=== PATIENT | female | born 1940 | race Caucasian/White ===

== ENCOUNTER → 2019-04-03 15:46 | Outpatient (CLI) | payer SELFPAY ==
--- NOTE | 2019-04-03 12:40 | LES_PTH ---
PATIENT: PHILL CHE LOC: [facility] U#:[id number] AGE/SX: 85/F ROOM: RE04/03/[address]: Dr. Karel Prado MD : 1940 BED: DIS: SPEC #: [id number] RECD: 04/03/19 15:22 STATUS: [facility] #: [id number] THIAGO: 04/03/19 12:[address]: Karel Prado DEPT: SURGICAL PATHOLOGY RECD BY: Alfredito Whatley ENTERED: 04/04/19 08:43 SP TYPE: Lesion OTHR DR: No Primary Care Phys WAS Tissues: Skin of external ear, NOS Procedures: Surgery Specimen Level IV HEADER OPERATION: Excision left ear canal mass PRE-OP DIAGNOSIS: Benign neoplasm of skin of left ear and external auricular canal TISSUE SUBMITTED: Left ear canal mass MICROSCOPIC DIAGNOSIS Mass of left ear canal, biopsy: Squamous epithelium with keratin debris. See comment. AM:sara 04/05/19 COMMENT The findings are suggestive of an epidermal inclusion cyst with focal rupture and associated reactive change. Clinical correlation is suggested. MICROSCOPIC DESCRIPTION Slides are reviewed. GROSS DESCRIPTION Received is one container labeled with the patient's name and not further designated. The specimen consists of two fragments of doss-brown soft tissue that in aggregate measure 0.5 x 0.3 x 0.1 cm. The specimen is totally submitted in one cassette. / SJ:sara 04/04/19 TC:5 CPT: [id number]
== END ==
PROVIDERS: Referring Provider Otolaryngology; Visit Provider Otolaryngology
DX: D23.22 Other benign neoplasm of skin of left ear and external auricular canal (principal)
CPT/HCPCS: 88305

== ENCOUNTER → 2020-07-04 13:52 | Outpatient (CLI) | payer SELFPAY ==
[2020-07-04 15:36] LABS: Absolute Lymphocyte Count 0.85 X10^3/uL (0.83-4.51); Absolute Neutrophil Count 2.2 X10^3/uL (2.0-7.7); Basophil# 0.01 X10^3/uL; Basophil% 0.3 % (0-1); Eosinophil# 0.04 X10^3/uL; Eosinophils% 1.2 % (0-5); Hematocrit 42.2 % (37-47); Hemoglobin 13.3 g/dL (12.0-15.0); Lymphocyte # 0.85 X10^3/ul (4.0); Lymphocyte % 25.1 % (19-41); Mean Corp Hgb Conc 31.5 g/dL (32-36); Mean Corpuscular Hgb 30.6 pg (27.0-32.0); Mean Corpuscular Volume 97.2 fL (81-99); Mean Platelet Vol. 10.8 fl (6.2-12.0); Monocyte# 0.27 X10^3/uL; NRBC Flagged by Analyzer 0 % (0-5); Neutrophil # 2.21 X10^3/uL (2.7-7.7); Neutrophil % 65.1 % (47-70); Platelet Count 145 K/mm3 (150-450); RBC Distribution Width CV 12.4 % (11.6-14.6); RBC Distribution Width SD 44.7 fl (35.1-43.9); Red Blood Count 4.34 M/mm3 (4.2-5.4); White Blood Count 3.4 K/mm3 (4.4-11.0)
[2020-07-04 15:50] LABS: CRP < 2.90 mg/L (0.0-3.0)
[2020-07-04 15:53] LABS: Erythrocyte Sedimentation Rate 4 mm/hr (0-30)
== END ==
PROVIDERS: PCP Family Medicine; Referring Provider Ophthalmology; Visit Provider Ophthalmology
DX: H53.10 Unspecified subjective visual disturbances (principal)
CPT/HCPCS: 36415; 85025; 85652; 86140

== ENCOUNTER → 2021-10-08 | Outpatient (CLI) | payer SELFPAY ==
--- NOTE | 2021-10-08 | IMM_PTH ---
PATIENT: PHILL CHE LOC: [facility] U#:[id number] AGE/SX: 81/F ROOM: RE10/08/[address]: Dr. Jitendra Montana MD : 1940 BED: DIS: 10/08/2021 SPEC #: [id number] RECD: 10/10/21 13:31 STATUS: VAN REQ #: [id number] THIAOG: 10/08/21 00:[address]: Jitendra Montana DEPT: IMMUNOHISTOCHEMISTRY RECD BY: Fatoumata Buenrostro ENTERED: 10/10/21 13:32 SP TYPE: IMMUNO OTHR DR: Dr. Jitendra Osorio MD Tissues: Skin of eyelid, NOS Procedures: MACRO (add) Pankeratin (initial) MELAN-A (add) S-100 (add) PHYSICIAN & INSTITUTION [facility] [id number] SPECIMEN INFORMATION: Tissue Source: Lesion right lower lid Clinical Info: Enlarging past few months Specimen Number: [id number] CPT code: 44213, 42684 x3 METHODOLOGY: Deparaffinized sections of prefer/formalin-fixed tissue or PAP/DQ stained slides are incubated with monoclonal/polyclonal antibodies/oligonucleotide probes. Localization is made via biotin free immunoperoxidase method. Appropriate controls are performed and reacted as expected. Results on target cell population are indicated in the following table: RESULTS: ANTIBODY / CLONE RESULT AE1-3 (AE1/AE3/PCK26) negative Macro (HAM-56) negative Melan A (A103) positive S-100 (4C4.9) positive These tests were developed and their performance characteristics determined by [facility]. They may not have been cleared or approved by the U.S. Food and Drug Administration. The FDA has determined that such clearance or approval is not necessary. The above immunohistochemical/dualISH markers are ordered and reviewed by the Pathologist. INTERPRETATION: Lesion of right lower eyelid, biopsy: Consistent with intradermal nevus. AM:sara 10/13/2021
--- NOTE | 2021-10-08 | LES_PTH ---
PATIENT: PHILL CHE LOC: [facility] U#:[id number] AGE/SX: 81/F ROOM: RE10/08/[address]: Dr. Jitendra Montana MD : 1940 BED: DIS: 10/08/2021 SPEC #: [id number] RECD: 10/08/21 14:56 STATUS: VAN J[facility]EN #: [id number] THIAGO: 10/08/21 00:[address]: Jitendra Montana DEPT: SURGICAL PATHOLOGY RECD BY: Samantha Ham ENTERED: 10/09/21 08:31 SP TYPE: Lesion OTHR DR: Dr. Jitendra Osorio MD Tissues: Skin of eyelid, NOS Procedures: Surgery Specimen Level IV HEADER OPERATION: Lesion excision right lower lid PRE-OP DIAGNOSIS: Enlarging past few months TISSUE SUBMITTED: Lesion right lower lid MICROSCOPIC DIAGNOSIS Lesion of right lower eyelid, biopsy: Consistent with intradermal nevus. See comment. AM:sara 10/10/2021 COMMENT Immunohistochemistry ([id number]) supports the above diagnosis. MICROSCOPIC DESCRIPTION Slides are reviewed. GROSS DESCRIPTION Received in fixative is one container labeled with the patient's name and designated right lower lid. The specimen consists of a piece of doss-white skin measuring 0.2 x 0.2 x 0.1 cm. The entire specimen is submitted in one cassette. / SJ:sara 10/09/21 TC:5 [facility]: [id number]
== END | disposition home or self-care (01) ==
LOC: LABSPEC 15:36
PROVIDERS: PCP Family Medicine; Referring Provider Ophthalmology; Visit Provider Ophthalmology
DX: D22.112 Melanocytic nevi of right lower eyelid, including canthus (principal)
CPT/HCPCS: 88305; 88341; 88342